=== PATIENT | female | born 1980 | race Two or more races ===

== ENCOUNTER 2016-06-30 08:18 | Emergency (ER) | payer BC ==
[~2016-06-30] VITALS: Ht 157.5 cm; Wt 74.4 kg
[2016-06-30] MEDS ORDERED: SODIUM CHLORIDE 0.9% 1,000 ML IV ONE (08:44)
[2016-06-30] MEDS ORDERED: SODIUM CHLORIDE 0.9% 1,000ML IVBOLUS ONE (09:00)
[2016-06-30 09:04] LABS: HEMOGLOBIN 13.1 g/dL (11.7-16.4)
[2016-06-30 12:24] VITALS: BP 103/62
== END 2016-06-30 12:27 | disposition home or self-care (01) ==
LOC: ED 11:12
DX: O46.92 Antepartum hemorrhage, unspecified, second trimester (principal); Z3A.15 15 weeks gestation of pregnancy
CPT/HCPCS: 36415; 76805; 81003; 84702; 85025; 86901; 96360; 99285; J7030